=== PATIENT | female | born 1995 | race Native Hawaiian/Other Pacific Islander ===

== ENCOUNTER 2017-09-08 08:00 | Emergency (ER) | payer OTHER ==
[2017-09-08 08:09] VITALS: TEMP 97.4
--- NOTE | 2017-09-08 08:20 | C.PDOC ---
History Of Present Illness SP ACCIDENTAL OVERDOSE @ 0730. TOOK ROUTINE DOSE OF VEMLIDY @ 0700, BUT ACCIDENTALLY TOOK EXTRA DOSE OF VEMLIDY 25 MG @ 0730. DENIES SUICIDAL INTENTION "I JUST THOUGHT I DIDN'T TAKE IT". DENIES OTHER DRUG OVERDOSE, OTHER SX. 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, SI/SA REMAINDER NEG Time Seen by Provider: 09/08/17 08:15 Chief Complaint (Nursing): Medical Clearance History Per: Patient History/Exam Limitations: no limitations Onset/Duration Of Symptoms: Other ([employer]) Past Medical History Reviewed: Historical Data, Nursing Documentation, Vital Signs Vital Signs: Last Vital Signs Temp 97.4 F L 09/08/17 08:08 Pulse 77 09/08/17 09:28 Resp 16 09/08/17 09:28 BP 112/74 09/08/17 09:28 Pulse Ox 100 09/08/17 09:28 Family History: States: No Known Family Hx Review Of Systems Cardiovascular: Negative for: Chest Pain Respiratory: Negative for: Shortness of Breath Gastrointestinal: Negative for: Vomiting Psych: Negative for: Suicidal ideation Physical Exam - Physical Exam Appears: Non-toxic, No Acute Distress, Other (APPEARS COMFORTABLE NAD) Skin: Warm, Dry, No Rash Head: Atraumatic, Normacephalic Nose: Normal Oral Mucosa: Moist Lips: Normal Appearing Neck: Normal ROM Chest: Symmetrical Cardiovascular: Rhythm Regular, No Murmur Respiratory: Normal Breath Sounds, No Accessory Muscle Use Gastrointestinal/Abdominal: Soft, No Tenderness Neurological/Psych: Other (PSYCH CALM COOPERATIVE NO ACTIVE PSYCHOSIS,) ED Course And Treatment - Laboratory Results Result Diagrams: 09/08/17 08:50 09/08/17 08:50 ECG: Interpreted By Me ECG Rhythm: Sinus Rhythm ECG Interpretation: Normal Rate From EC O2 Sat by Pulse Oximetry: 99 Progress - Re-Evaluation Re-evaluation Note: 09/08/17 09:22 EXAM UNCH FROM INITIAL VSS. - Data Reviewed Data Reviewed: Lab Disposition Counseled Patient/Family Regarding: Diagnosis, Need For Followup - Disposition Referrals: YOUR,PMD [Other] Disposition: HOME/ ROUTINE Disposition Time: 09:22 Condition: IMPROVED Additional Instructions: RESUME NORMAL DOSE SCHEDULE 09/09. FOLLOW UP WITH YOUR PMD. Forms: [facility] (Russian), General Discharge Instructions - Clinical Impression Clinical Impression: Accidental overdose - Scribe Statement The provider has reviewed the documentation as recorded by the Scribe (Diego Charles) All medical record entries made by the Scribe were at my direction and personally dictated by me. I have reviewed the chart and agree that the record accurately reflects my personal performance of the history, physical exam, medical decision making, and the department course for this patient. I have also personally directed, reviewed, and agree with the discharge instructions and disposition.
[2017-09-08 08:53] LABS: BASO % 0.7 % (0.0-2.0); EOS % 1.1 % (0.0-4.0); HEMATOCRIT 38.2 % (34.0-47.0); LYMPH # 1.4 K/uL (1.0-4.3); LYMPH % 33.2 % (20.0-40.0); MEAN CELL VOLUME 81.1 fL (81.0-99.0); MEAN CORPUSCULAR HEMOGLOBIN 26.7 pg (27.0-31.0); MEAN PLATELET VOLUME 9.2 fL (7.2-11.7); MONO # 0.4 K/uL (0.0-0.8); MONO % 9.2 % (0.0-10.0); RED CELL DISTRIBUTION WIDTH 15.1 % (11.5-14.5); WHITE BLOOD COUNT 4.2 K/uL (4.8-10.8)
[2017-09-08 09:08] LABS: VENOUS BLOOD GAS BASE EXCESS 0.2 mmol/L (0.0-2.0); VENOUS BLOOD GAS PCO2 51 mmHg (40-60); VENOUS BLOOD PH 7.33 (7.32-7.43)
[2017-09-08 09:18] LABS: ALB/GLOB RATIO 1.3 (1.0-2.1); ALKALINE PHOSPHATASE 54 U/L (38-126); ALT/SGPT 56 U/L (9-52); AST/SGOT 46 U/L (14-36); BILIRUBIN,TOTAL 0.9 mg/dL (0.2-1.3); BLOOD UREA NITROGEN 14 mg/dL (7-17); CALCIUM 8.3 mg/dl (8.6-10.4); CARBON DIOXIDE 27 mmol/L (22-30); CHLORIDE 100 mmol/L (98-107); GFR AFRICAN-AMERICAN > 60; GLUCOSE,RANDOM 89 mg/dL (65-105); POTASSIUM 3.6 mmol/L (3.6-5.2); SODIUM 136 mmol/L (132-148); TOTAL PROTEIN 7.6 g/dL (6.3-8.3)
[2017-09-08 09:28] VITALS: BP 112/74; PULSE 77; RESP 16
[2017-09-08 10:10] VITALS: O2SAT 99
--- NOTE | 2017-09-10 21:43 | CARD ---
APPROVED REPORT EKG Measurement Heart [id number] <Conclusion> Normal sinus rhythm Normal ECG
== END 2017-09-08 09:30 | disposition home or self-care (01) ==
LOC: C.ER 08:00
DX: T37.5X1A Poisoning by antiviral drugs, accidental (unintentional), initial encounter (principal); Y92.89 Other specified places as the place of occurrence of the external cause